=== PATIENT | female | born 1995 | race Caucasian/White ===

== ENCOUNTER 2017-09-15 12:58 | Day surgery (SDC) | payer BC ==
[2017-09-12 15:09] LABS: BASOPHILS # (AUTO) 0.1 K/uL (0.0-0.2); EOSINOPHILS % (AUTO) 0.4 % (0.0-4.0); HEMATOCRIT 40.5 % (36-48); HEMOGLOBIN 13.5 g/dL (12.0-16.0); LYMPHOCYTES # (AUTO) 3.5 K/uL (1.0-5.5); MEAN CORPUSCULAR HEMOGLOBIN 30 pg (27-31); MEAN CORPUSCULAR HGB CONC 34 % (32-36); MEAN CORPUSCULAR VOLUME 90 fL (79.0-98.0); MONOCYTES # (AUTO) 0.6 K/uL (0.0-1.0); MONOCYTES % (AUTO) 5.7 % (1.7-9.3); NEUTROPHILS # (AUTO) 6.4 K/uL (1.8-7.7); NEUTROPHILS % (AUTO) 59.9 % (40.0-70.0); PLATELET COUNT (AUTO) 252 K/uL (130-430); RED CELL DISTRIBUTION WIDTH 12.4 % (9.0-15.0); WHITE BLOOD COUNT (AUTO) 10.6 K/uL (4.8-10.8)
[2017-09-12 15:36] LABS: INR 0.9 (0.8-1.2); PROTHROMBIN TIME 9.6 SECS (9.5-12.5)
[2017-09-12 15:37] LABS: ALBUMIN 3.7 g/dL (3.4-4.8); CALCIUM 9.8 mg/dL (8.4-11.0); CREATININE 0.57 mg/dL (0.55-1.30); POTASSIUM 4.1 mmol/L (3.5-5.1); TOTAL BILIRUBIN 0.3 mg/dL (0.0-1.0)
[~2017-09-15] VITALS: Ht 170.2 cm; Wt 104.3 kg
[2017-09-15 13:47] LABS: HCG,QUAL RESULT NEGATIVE (NEGATIVE)
[2017-09-15] MEDS ORDERED: fentaNYL CITRATE/PF 100 MCG/2 ML AMP IVP PRN (16:00)
[2017-09-15] MEDS ORDERED: ONDANSETRON HCL 4 MG/2 ML VIAL IVP PRN ×2 (16:00→17:30)
[2017-09-15] MEDS ORDERED: ACETAMINOPHEN 325 MG TABLET PO PRN (17:30)
[2017-09-15] MEDS ORDERED: ONDANSETRON HCL 4 MG/2 ML VIAL IVP ONE (17:35)
[2017-09-15] MEDS ORDERED: ROCURONIUM BROMIDE 10 MG/ML (ZEMURON) IV ONE (17:35)
[2017-09-15] MEDS ORDERED: SEVOFLURANE 15 MIN GAS INH ONE (17:35)
[2017-09-15] MEDS ORDERED: PROPOFOL 200MG/ 20ML VIAL (DIPRIVAN) IV ONE (17:35)
[2017-09-15] MEDS ORDERED: MIDAZOLAM HCL 5 MG/ML VIAL (VERSED) IV ONE (17:35)
[2017-09-15] MEDS ORDERED: MEPERIDINE HCL/PF 100 MG/ML AMP IM ONE (17:35)
[2017-09-15] MEDS ORDERED: BUPIVACAINE /PF 0.5% 30 ML VIAL INJ ONE (17:35)
[2017-09-15] MEDS ORDERED: fentaNYL CITRATE/PF 100 MCG/2 ML AMP ONE ×2 (17:35→17:50)
[2017-09-15] MEDS: fentaNYL CITRATE/PF 100 MCG/2 ML AMP IVP PRN ×2 (17:35→17:50)
[2017-09-15] MEDS ORDERED: NS 1000 ML BAG IV ONE (17:35)
[2017-09-15] MEDS ORDERED: NS IRRIG SOLN 1000 ML IR ONE (17:35)
[2017-09-15] MEDS ORDERED: PHENYLEPHRINE HCL 10 MG/ML VIAL (NEOSYNEPHRINE) IV ONE (17:35)
[2017-09-15] MEDS ORDERED: ONDANSETRON HCL 4 MG/2 ML VIAL ONE (18:14)
[2017-09-15 19:02] VITALS: BP_SYST 142
[2017-09-15 20:00] VITALS: BP_SYST 130
[2017-09-15] MEDS ORDERED: CEFAZOLIN 1 GM IVPB PREMIX 100 ML IV ONE (20:20)
[2017-09-15] MEDS: CEFAZOLIN 1 GM IVPB PREMIX 50 ML IV SCH (20:29)
[2017-09-15] MEDS: HYDROmorphone 1 MG INJ. 1 MG/ML AMPUL IVP PRN (20:29)
[2017-09-15] MEDS: traMADol HCL HCL 50 MG TABLET (ULTRAM) PO SCH (23:05)
[2017-09-16] MEDS: HYDROmorphone 1 MG INJ. 1 MG/ML AMPUL IVP PRN ×3 (00:05→06:24)
[2017-09-16 00:20] VITALS: BP_SYST 122
[2017-09-16] MEDS: CEFAZOLIN 1 GM IVPB PREMIX 50 ML IV SCH (03:41)
[2017-09-16] MEDS: traMADol HCL HCL 50 MG TABLET (ULTRAM) PO SCH ×3 (05:06→12:30)
[2017-09-16 05:50] LABS: BASOPHILS % (AUTO) 0.1 % (0.0-2.0); HEMATOCRIT 36.6 % (36-48); HEMOGLOBIN 12.4 g/dL (12.0-16.0); LYMPHOCYTES # (AUTO) 2.3 K/uL (1.0-5.5); LYMPHOCYTES % (AUTO) 16.8 % (20.5-51.5); MEAN CORPUSCULAR HEMOGLOBIN 31 pg (27-31); MEAN CORPUSCULAR HGB CONC 34 % (32-36); MEAN CORPUSCULAR VOLUME 90 fL (79.0-98.0); MONOCYTES # (AUTO) 0.9 K/uL (0.0-1.0); MONOCYTES % (AUTO) 6.2 % (1.7-9.3); NEUTROPHILS # (AUTO) 10.8 K/uL (1.8-7.7); NEUTROPHILS % (AUTO) 76.9 % (40.0-70.0); PLATELET COUNT (AUTO) 218 K/uL (130-430); RED BLOOD CELL COUNT(AUTO) 4.06 MIL/uL (4.2-6.2); RED CELL DISTRIBUTION WIDTH 12.6 % (9.0-15.0)
[2017-09-16 06:06] LABS: CALCIUM 8.9 mg/dL (8.4-11.0); CREATININE 0.64 mg/dL (0.55-1.30); POTASSIUM 4.3 mmol/L (3.5-5.1); TOTAL BILIRUBIN 0.2 mg/dL (0.0-1.0)
[2017-09-16 08:20] VITALS: BP_SYST 153
[2017-09-16] MEDS ORDERED: HYDROmorphone 2 MG TAB PO PRN (10:00)
[2017-09-16] MEDS ORDERED: KETOROLAC TROMETHAMINE 30 MG VIAL IVP PRN (10:00)
[2017-09-16 12:00] VITALS: BP_SYST 131
[2017-09-16] MEDS ORDERED: OXYC-130 PO (14:36)
[2017-09-16] MEDS ORDERED: DOCU-144 PO (14:37)
[2017-09-16] MEDS ORDERED: TRAM50TA92 PO (14:37)
[2017-09-16 15:07] VITALS: BP_SYST 126
[2017-09-16] MEDS ORDERED: MILK OF MAGNESIA 30 ML UDC PO ONE (15:30)
[2017-09-16 16:00] VITALS: BP_SYST 139
== END 2017-09-16 16:15 | disposition home or self-care (01) ==
LOC: SDS 12:58 → SMU 18:38 → SDS 09-16 16:15
PROVIDERS: ATTEND Surgery
DX: K80.10 Calculus of gallbladder with chronic cholecystitis without obstruction (principal); Z88.8 Allergy status to other drugs, medicaments and biological substances; E66.9 Obesity, unspecified; E03.9 Hypothyroidism, unspecified; R00.1 Bradycardia, unspecified
CPT/HCPCS: 36415 ×2; 47562; 71046; 80053 ×2; 84703 ×2; 85025 ×2; 85610; 85730; 88304; 93005; C1727; J0690; J1170 ×2; J1885; J2175; J2250; J2370; J2405; J2704; J3010; J3490; J7030